=== PATIENT | female | born 2005 | race Caucasian/White ===

== ENCOUNTER 2025-09-20 12:04 | Emergency (ER) | payer OTHER ==
[2025-09-20] MEDS ORDERED: Metoclopramide HCl 10 MG (2 mL) VIAL ONE (12:31)
[2025-09-20 13:36] LABS: BHCG - Serum Negative (NEGATIVE); Pregs Control Background? CLEAR/WHITE (CLR/WHITE); Pregs Control Bar Appear? YES (CONTROL BAR)
== END 2025-09-20 14:13 | disposition home or self-care (01) ==
LOC: ERS 12:04
DX: B34.9 Viral infection, unspecified (principal)
CPT/HCPCS: 84703; 87081; 87428; 87430; 96365; 96375; J2765